=== PATIENT | female | born 1980 | race Hispanic/Latino ===

== ENCOUNTER 2023-08-26 07:43 | Outpatient (CLI) | payer OTHER | END 2023-08-26 07:44 | disposition home or self-care (01) | LOC: BICMAMMO 07:43 | PROVIDERS: ATTEND Family Medicine | DX: N63.25 Unspecified lump in the left breast, overlapping quadrants (principal); R92.333 Mammographic heterogeneous density, bilateral breasts | CPT/HCPCS: 77066; G0279 ==